=== PATIENT | male | born 1970 | race Caucasian/White ===

== ENCOUNTER → 2017-02-25 | Day surgery (SDC) | payer BC ==
[~2017-02-25] VITALS: Ht 175.3 cm; Wt 89.1 kg
[~2017-02-25] MED LIST: DIOVAN320 MG PO; LORTAB ELIXI15 ML/UD PO; THERA-VITE W/ B1 TAB PO; TYLENOL EXTRA500 MG PO
--- NOTE | ~2017-02-25 | OR ---
PATIENT'S NAME: JOLEEN SOFIA [facility] AGE: 47 Y [address] 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 OPERATIONS/PROCEDURES: 1. Direct laryngoscopy. 2. Rigid esophagoscopy. 3. Tonsillectomy. ANESTHESIA: General endotracheal anesthesia. ESTIMATED BLOOD LOSS: Minimal. COMPLICATIONS: None. BRIEF HISTORY: The patient is a 47-year-old gentleman, who presented with history of progressively enlarging left-sided neck mass. Fine needle biopsy was performed in the clinic, which revealed atypical cells consistent with possible squamous cell carcinoma. He was noted to have some enlargement of the left tonsil and was subsequently scheduled for a direct laryngoscopy, rigid esophagoscopy, and possible tonsillectomy. DESCRIPTION OF PROCEDURE: The patient was taken to the operating room, laid in supine position, and underwent general endotracheal anesthesia. The table was rotated 90 degrees, right shoulder roll placed, head was placed in a sniffing position. Laryngoscope was inserted within the oropharynx, directed down the right lateral pharyngeal wall. Right tonsil was visualized and noted to be normal. Tongue was elevated anteriorly. Base of the tongue was noted to be within normal limits. Scope was placed within the right piriform sinus, this was normal. Epiglottis was lifted anteriorly. Cords were visualized and noted to be within normal limits. His epiglottis was noted to be normal. Esophagoscope was then placed in the left piriform sinus, this too was without obvious lesion. The scope was slowly withdrawn. The tonsil was noted to be firm. There was what appeared to be an exophytic lesion involving the left PATIENT'S NAME: JOLEEN SOFIA [facility] AGE: 47 Y [address] ROOM: [place] [address] LOCATION: [facility] [place] ADMIT DATE: 02/25/2017 OR/Procedure Report DISCHARGE DATE: FAMILY PHYSICIAN: PHYSICIAN, NO ATTENDING PHYSICIAN: Romel Sumner V tonsil. This was approximately 2 to 3 cm in size. The tonsil was easily movable. Laryngoscope was removed. Esophagoscope was inserted and directed down the right lateral pharyngeal wall. It was directed into the right piriform sinus. Through the cricopharyngeus, under direct vision, it was advanced 25 cm. It was slowly withdrawn. Mucosa was noted to be within normal limits. Esophagoscope was removed. Sarath-Sean mouth gag inserted and opened. Tonsils visualized and noted to be +2 to 3, hypertrophied, right and left respectively. The right tonsil was palpated. It was firm, hard, easily movable. The lesion was felt to be encapsulated within the tonsils. The tonsil was grasped with curved Allis forceps, reflected inferomedially. Tonsil was dissected free from the tonsillar bed. Superior constrictor muscles extended inferiorly. There was no involvement of the constrictor muscle. Tonsil was dissected out of the tonsillar bed without difficulty. Hemostasis performed using Bovie electrocautery. Specimen was removed and sent as a separate specimen, left tonsil. Hemostasis was noted to be adequate. Inferior tonsillar fossa was closed using interrupted 2-0 plain gut suture. Attention was then turned to the right. Right tonsil was grasped and removed without difficulty using Bovie electrocautery, sent for pathology. Tonsillar fossa was oversewn with interrupted 2-0 plain gut suture. Hemostasis was noted to be adequate. Tonsillar fossa was then infiltrated with 0.5% Marcaine with epinephrine solution. The patient tolerated the procedure well. Sarath-Sean mouth gag released, reopened, hemostasis adequate. Sarath-Sean mouth gag was removed. The patient was aroused, extubated, and discharged from the operating room to recovery room in satisfactory condition. MD EM PARIKH/julio /[id number] d: 02/26/17 0030 t: 03/04/17 0737, OPERATIVE SUMMARY
--- NOTE | 2017-02-25 09:25 | NUR ---
0919 REPORT TO CHRIS MOON. TO ROOM 1039 PER CART.
== END | disposition disaster alternative care site (69) ==
LOC: GPOC 02-07 09:00 → GSDC 07:00
PROC: 0CJS8ZZ Inspection of Larynx, Via Natural or Artificial Opening Endoscopic (ICD-10-PCS; principal; 2017-02-25)
PROC: 0DJ08ZZ Inspection of Upper Intestinal Tract, Via Natural or Artificial Opening Endoscopic (ICD-10-PCS; 2017-02-25)
PROC: 0CBPXZZ Excision of Tonsils, External Approach (ICD-10-PCS; 2017-02-25)
DX: C09.9 Malignant neoplasm of tonsil, unspecified (principal)
CPT/HCPCS: J0171; J3010; J7030; J7120

== ENCOUNTER → 2017-03-29 | Outpatient (CLI) | payer BC | LOC: GKIC 03-04 12:00 | DX: D37.09 Neoplasm of uncertain behavior of other specified sites of the oral cavity (principal); C79.89 Secondary malignant neoplasm of other specified sites | CPT/HCPCS: A9552 ==